=== PATIENT | female | born 1980 | race African-American/Black ===

== ENCOUNTER 2025-06-29 13:55 | Emergency (ER) | payer BC, SELFPAY ==
[2025-06-29 13:59] VITALS: BP 132/58; PULSE 119; RESP 18; TEMP 36.9; O2SAT 100
--- NOTE | 2025-06-29 15:20 | ED_ITS ---
HPI - Dental/Oral General Chief complaint: Dental/Oral Stated complaint: toothache Time Seen by Provider: 06/29/25 15:20 Focused HPI: This is a 45 year old female that presents to the ER for toothache. Reports she needs some teeth filled and one pulled. Reports she has an appointment in a couple of weeks. Reports worsening pain and some swelling in the area. Denies fevers. GENERAL: Well-appearing, well-nourished, and in no acute distress. HEAD: Normocephalic, atraumatic. CHEST: Clear to auscultation. ?No respiratory distress. HEART: Regular rate and rhythm.? NEURO: ?Alert and oriented x3. Patient screened in triage and initial orders placed.? ?Additional care and disposition to be based upon?diagnostic testing and treatment. History of Present Illness MD Complaint: tooth pain Location: Tooth # (18) Related Data Allergies Allergy/AdvReac Type Severity Reaction Status Date / Time No Known Allergies Allergy Verified 06/29/25 14:01 Review of Systems Review of Systems: All systems reviewed & are unremarkable except as noted in HPI and below PMFSH Past Medical History Medical History (Updated 06/29/25 @ 15:39 by Radha Ocasio PA-C) No active medical problems Exam Narrative: GENERAL: Well-appearing, well-nourished, and in no acute distress. HEAD: Normocephalic, atraumatic. EYES: EOMI. ENT: Nares clear, no rhinorrhea or epistaxis. Mucous membranes moist. Oropharynx without tonsillar hypertrophy exudate or other lesions. Tooth #18 tender to palpation without surrounding edema or fluctuance to suggest abscess NECK: Supple. No adenopathy or masses. EXTREMITIES: Normal range of motion. No edema. SKIN: Warm, dry, no rash. NEURO: No focal deficits. Alert and oriented x3. PSYCH: Normal mood and affect Course Vital Signs Vital signs: Vital Signs Temperature 98.4 F 06/29/25 13:59 Pulse Rate 119 H 06/29/25 13:59 Respiratory Rate 18 06/29/25 13:59 Blood Pressure 132/58 L 06/29/25 13:59 Pulse Oximetry 100 06/29/25 13:59 Oxygen Delivery Room Air 06/29/25 13:59 Temperature 98.4 F 06/29/25 13:59 Pulse Rate 119 H 06/29/25 13:59 Respiratory Rate 18 06/29/25 13:59 Blood Pressure 132/58 L 06/29/25 13:59 Pulse Oximetry 100 06/29/25 13:59 Oxygen Delivery Room Air 06/29/25 13:59 MDM - Dental/Oral MDM Narrative Medical decision making narrative: Patient presents to the emergency department for dentalgia. She is afebrile and nontoxic appearing. No abscess on exam. Will be started on oral antibiotics, does report she has follow-up with a dentist. She was given warnings to return to the ER Differential Diagnosis Differential diagnosis: Likely dental caries, toothache, dental abscess and fracture of tooth Critical Care Time Critical Care Time Critical Care Time: No Discharge Plan Discharge Clinical Impression: Toothache Patient Disposition: Home Condition: Stable Instructions: Antibiotic Form, Toothache (ED) Additional Instructions: Return to the ER if you experience fever, increasing redness and swelling of your tooth, or any other symptoms that are concerning to you Take oral antibiotics as prescribed Follow up with your dentist Patient Language: Ecuadorean Prescriptions: New amoxicillin-pot clavulanate 875-125 mg tablet 1 tablet PO Q12H 7 Days Qty: 14 0RF Follow-up/Referrals: PHYSICIAN NOT ON STAFF,NONSTAFF [Primary Care Provider]
== END 2025-06-29 16:02 | disposition home or self-care (01) ==
LOC: ANHED 15:43
PROVIDERS: Emergency Provider Physician Assistant; PCP Nurse Practitioner Adult Health
DX: K08.89 Other specified disorders of teeth and supporting structures (principal)
CPT/HCPCS: 99283